=== PATIENT | male | born 2000 | race Caucasian/White ===

== ENCOUNTER → 2021-04-02 14:47 | Outpatient (CLI) | payer OTHER, SELFPAY ==
[2021-04-02 16:42] LABS: Urine Chlamydia NOT DETECTED; Urine N gonorrhoeae NOT DETECTED
[2021-04-03 05:31] LABS: HBsAg Screen Negative (Negative); Hepatitis A Antibody IgM Negative (Negative); Hepatitis B Core Antibody IgM Negative (Negative); Hepatitis C Antibody <0.1 s/co ratio (0.0-0.9)
[2021-04-03 05:36] LABS: RPR Screen Non Reactive (Non Reactive)
[2021-04-05 15:45] LABS: HIV 1 & 2 Ab/Ag 4th Gen Combo NEGATIVE (NEGATIVE)
== END ==
DX: Z11.3 Encounter for screening for infections with a predominantly sexual mode of transmission (principal)
CPT/HCPCS: 36415; 80074; 86592; 87389; 87491; 87591

== ENCOUNTER → 2021-05-20 12:46 | Outpatient (ROUT) | payer OTHER, SELFPAY ==
[2021-05-20 14:15] LABS: COVID19 -Nasal RAPID Negative (Negative)
== END ==
PROVIDERS: Visit Provider Family Medicine
DX: Z20.822 Contact with and (suspected) exposure to COVID-19 (principal)
CPT/HCPCS: 87635

== ENCOUNTER → 2021-07-27 15:27 | Outpatient (ROUT) | payer OTHER, SELFPAY ==
[2021-07-27 15:49] LABS: COVID19 -Nasal RAPID Negative (Negative)
== END ==
PROVIDERS: Visit Provider Family Medicine
DX: Z20.822 Contact with and (suspected) exposure to COVID-19 (principal)
CPT/HCPCS: 87635

== ENCOUNTER → 2022-05-13 11:02 | Outpatient (CLI) | payer OTHER, SELFPAY ==
--- NOTE | 2022-05-13 | DI.RAD.S_ITS ---
PROCEDURE: XR LUMBAR SPINE 2-3V INDICATIONS: SCIATICA FOR THREE MONTHS TECHNIQUE: 3 views of the lumbar spine were acquired. COMPARISON: None. FINDINGS: Bones: 5 [id number] vertebrae are present. There is normal bony alignment. No vertebral body compression fractures. No suspicious bony lesions. Soft tissues: Overlying bowel gas pattern is normal. No suspicious soft tissue calcifications. IMPRESSION: Lumbar spine without acute radiographic abnormalities. No significant spondylitic changes identified. Dictated by: Nikhil Cruz M.D. on 05/13/2022 at 12:50 Approved by: Nikhil Cruz M.D. on 05/13/2022 at 12:51
== END ==
PROVIDERS: PCP Family Medicine; Referring Provider Family Medicine; Visit Provider Family Medicine
DX: M54.30 Sciatica, unspecified side
CPT/HCPCS: 72100

== ENCOUNTER 2022-06-09 07:12 | Emergency (ER) | payer OTHER, SELFPAY ==
[2022-06-09 07:28] VITALS: BP 101/58; PULSE 84; RESP 16; TEMP 37.1; O2SAT 100; BMI 23.7
--- NOTE | 2022-06-09 07:59 | ED.WOUNDLAC ---
HPI - Wound/Laceration General Chief Complaint: Wound/Laceration Stated Complaint: sliced tip of finger Time Seen by Provider: 06/09/22 07:46 History of Present Illness HPI narrative: Patient is a 21-year-old male who presents with right middle finger laceration. He was at work taking middle out of a drill bit when he cut his finger. No numbness tingling or weakness. Tetanus is up to date. He gets very sensitive and nauseous at needles and site of blood. [id number]. Related Data Home Medications Medication Instructions Recorded Confirmed No Known Home Medications 12/23/17 12/23/17 Previous Rx's Medication Instructions Recorded amoxicillin 500 mg capsule 500 mg PO TID #30 caps 12/23/17 Allergies Allergy/AdvReac Type Severity Reaction Status Date / Time No Known Drug Allergies Allergy Verified 12/23/17 10:43 Review of Systems Review of Systems Narrative: GENERAL: Denies chills,fever HEENT: Denies throat pain RESPIRATORY: Denies dyspnea, cough, wheezing CARDIOVASCULAR: Denies chest pain, palpitations GASTROINTESTINAL: Denies nausea, vomiting MUSCULOSKELETAL: Denies extremity pain, injury SKIN: See HPI NEUROLOGIC: Denies weakness, dizziness, headache, numbness 8 point review of systems is negative except for those stated above and HPI Patient History Social History Smoking Status: Current every day smoker Smoking Status: Current every day smoker Exam Initial Vital Signs Initial Vital Signs: Vital Signs Temperature 98.7 F 06/09/22 07:28 Pulse Rate 84 06/09/22 07:28 Respiratory Rate 16 06/09/22 07:28 Blood Pressure 101/58 L 06/09/22 07:28 Pulse Oximetry 100 06/09/22 07:28 Oxygen Delivery Method 06/09/22 07:28 GENERAL: Well-appearing, well-nourished and in no acute distress. CARDIOVASCULAR: peripheral pulses in tact, cap refill <2 sec RESPIRATORY: No respiratory distress, speaks in full sentences without difficulty EXTREMITIES: Normal range of motion, no clubbing or edema. Neurovascularly intact NEUROLOGICAL: Cranial nerves II through XII grossly intact. Normal gait and speech. SKIN: 2 cm laceration right middle finger distal palmar side Procedures Laceration Repair Laceration 1: Site: hand (middle finger) Side (If applicable): right Size (cm): 2 Description: linear Depth: simple, single layer Local Anesthetic: lidocaine 1% Amount of anesthesia used (mL): 2 Pre-repair: wound explored, irrigated extensively and deep structures intact Skin layer closed with: nylon Skin layer suture size: 5-0 Course Orders Ordered: Discontinued Medications Bacitracin (Bacitracin Oint 0.9 Gm Pckt) 1 applic TOP NOW ONE Stop: 06/09/22 08:18 Last Admin: 06/09/22 08:21 Dose: 1 applic Documented By: VANESSA Lidocaine HCl (Lidocaine 1% (Pf)) 2 ml SUBCUT NOW ONE Stop: 06/09/22 07:49 Last Admin: 06/09/22 08:09 Dose: 2 ml Documented By: VANESSA Vital Signs Vital signs: Vital Signs - 8 hr 06/09/22 07:28 Temperature 98.7 F Pulse Rate 84 Respiratory Rate 16 Blood Pressure 101/58 L Pulse Oximetry 100 Oxygen Delivery Method Room Air MDM - Wound/Laceration MDM Narrative Medical decision making narrative: The patient got nauseous while I was suturing he did not pass out he did not throw up after resting overall feeling better. Finger was easily sutured without complication Discharge Plan Departure Patient Disposition: Home Clinical Impression: Laceration Instructions: DI for Laceration Repair Activity Restrictions/Additional Instructions: 1. Have your suture removed in 5-7 days, you may go to walk-in clinic, return to the ER or call your primary care physician. Apply antibiotic ointment 1-2 times daily 2. No soaking in water including dishes, bathtubs, Lakes, swimming pools etc Keep hand covered at work with bandage and glove. Then air out at night 3. Signs of infection include, but not limited to, increased redness, increased swelling, increased pain, fever and purulent drainage, if the symptoms should arise, you may need an antibiotic and you should have a reevaluation either by your primary care provider or by the emergency department. Prescriptions: No Action No Known Home Medications amoxicillin 500 mg capsule 500 mg PO TID Qty: 30 0RF Referrals: Jocelyn Darden MD [Primary Care Provider] - Visit Report Forms: Patient Portal/API
[2022-06-09] MEDS: LIDOCAINE 1% (PF) 2 ML SUBCUT (08:09)
[2022-06-09] MEDS: BACITRACIN OINT 0.9 GM PCKT 1 APPLIC TOP (08:21)
== END 2022-06-09 08:38 | disposition home or self-care (01) ==
PROVIDERS: Emergency Provider Emergency Medicine; PCP Family Medicine
DX: S61.212A Laceration without foreign body of right middle finger without damage to nail, initial encounter (principal); W29.8XXA Contact with other powered hand tools and household machinery, initial encounter; Y99.0 Civilian activity done for income or pay
CPT/HCPCS: 12001; 99283